=== PATIENT | male | born 1965 | race Caucasian/White ===

== ENCOUNTER 2017-08-17 13:20 | Emergency (ER) | payer MEDICAID ==
[2017-08-17 13:26] VITALS: TEMP 98.2
--- NOTE | 2017-08-17 15:04 | EDPHY ---
HPI/HX/ROS/PE/MDM Narrative: CHIEF COMPLAINT: Rib vasquez HPI: This patient is a non-anticoagulated 51 y/o male arriving with his complaining of left-sided rib and back pain secondary to a mechanical fall two days prior to arrival. He was walking down the stairs in flip-flops and tripped , causing him to fall and strike his ribs on the left side. His pain is primarily localized to his upper ribs posteriorly. He presents as this pain has persisted and he is concerned regarding possible fracture. He denies any other injuries. He denies abdominal pain, hematuria, chest pain, shortness of breath, fainting, or weakness. REVIEW OF SYSTEMS: Aside from elements discussed in the HPI, a comprehensive 10-point review of systems was reviewed and is negative. PMH: 1. Hypertension (Lisinopril) SOCIAL HISTORY: Lives in [place]. Employed. Friend at bedside. PHYSICAL EXAM: General:Patient is alert, in no acute distress. ENT:Eyes are normal to inspection. ENT inspection normal. Neck: Normal inspection. Full range of motion. Respiratory:No respiratory distress. Breath sounds normal bilaterally. Cardiovascular: Regular rate and rhythm. Strong peripheral pulses. Normal cap refill. Abdomen:The abdomen is nontender to palpation. There are no peritoneal signs. There are normal bowel sounds. Back: Tenderness to left midaxillary line. Normal to inspection. Skin: Normal color. No rash. Warm and dry. Extremities: Normal appearance. Full range of motion. Neuro: Oriented x3. Normal motor function. Normal sensory function. ED Course: 51 y/o male presents with left rib pain secondary to a fall two days prior to arrival. Exam reveals tenderness along the left midaxillary line. No splenic pain or tenderness. Plan for chest x-ray to rule out acute osseous abnormalities. 15:50 Reviewed chest x-ray. There is evidence of two upper rib fractures on the left side. Pending radiologist review. Radiologist report identifies 2 left anterior rib fractures. I discussed these results with patient. Plan to discharge home in good condition with [place] for pain relief and incentive spirometer. Follow up and return precautions discussed , including abdominal pain or hematuria. The patient is comfortable with this plan. MDM: This patient presents with flank pain after fall/blunt injury. XR reveals two rib fxs in area of pain - no PTX. The patient has no abdominal TTP to suggest splenic or renal injury and his exam is reassuring. He declined additional imaging. We discussed strict return precautions. - Data Points Imaging Results: Imaging Impressions Ribs w/Chest X-Ray 08/17/17 15:04 Impression: 2 indeterminate age left anterior rib fractures. No posterior left 10th rib fracture identified. Imaging: I viewed and interpreted images myself General Time Seen by Provider: 08/17/17 14:58 Initial Vital Signs: Initial Vital Signs Temperature (C) 36.8 C 08/17/17 13:21 Heart Rate 107 H 08/17/17 13:21 Respiratory Rate 16 08/17/17 13:21 Blood Pressure 158/112 H 08/17/17 13:21 O2 Sat (%) 98 08/17/17 13:21 O2 Delivery Mode Room Air Allergies/Adverse Reactions: No Known Allergies Allergy (Unverified 01/10/14 02:02) Home Medications: Medication Instructions Recorded Herbals/Supplements -Info Only 1 ea PO DAILY 02/23/16 Lisinopril [Zestril 10 mg (*)] 10 mg PO DAILY 02/23/16 Multivitamins [Multivitamin (*)] 1 each PO DAILY 02/23/16 Acetaminophen [Tylenol 325mg (*)] 650 mg PO Q4 PRN #0 tab 02/25/16 Folic Acid [Folic Acid 1 MG (*)] 1 mg PO DAILY #30 tab 02/25/16 Thiamine HCl [Vitamin B-1] 100 mg PO DAILY #30 tab 02/25/16 Hydrocodone/APAP 5/325 [[place] 1 - 2 tab PO Q6H PRN #10 tab 08/17/17 5/325 (*)] Departure - Departure Disposition: Home, Routine, Self-Care Clinical Impression: Multiple rib fractures Condition: Good Instructions: How to Use an Incentive Spirometer (ED), Rib Fracture (ED) Additional Instructions: 1. Follow up with your primary doctor in 2-3 days for reevaluation. 2. Use incentive spirometer as directed several times daily. 3. Return to the emergency department for fever, worsening pain, shortness of breath or difficulty breathing, abdominal pain, blood in urine or other concerns. 4. Take Ibuprofen or Tylenol as directed below as needed for pain relief. Use [place] as prescribed as needed for breakthrough pain uncontrolled by ibuprofen. Do not take Tylenol (acetaminophen) with [place] as this medication already contains acetaminophen Adult Pain & Fever Control: We recommend Acetaminophen (Tylenol) and Ibuprofen (Motrin,Advil) for pain and fever control. When fever is high or pain severe, both drugs can be used at the same time, but at different intervals. Please note the time differences. Your dose is: Acetaminophen 650mg every 4 to 6 hours Ibuprofen 600mg every 6-8 hours with food Note: do not take Acetaminophen with Hydrocodone (Vicodin, Lortab) or Oxycodone (Percocet). These medications also contain Acetaminophen. No more than 3000mg of Acetaminophen should be taken in 24 hours (for an adult). Referrals: Sammi Uriostegui MD [Primary Care Provider] - As per Instructions Stand Alone Forms: Work Limited Duty Prescriptions: Hydrocodone/APAP 5/325 [[place] 5/325 (*)] 1 - 2 tab PO Q6H PRN #10 tab PRN Reason: Pain, Severe Report Scribed for: Vaus Vazquez Report Scribed by: Rosalind Vaughan Date of Report: 08/17/17 Time of Report: 16:02 Physician Review and Approval Statement: Portions of this note were transcribed by an ED scribe. I personally performed the history, physical exam, and medical decision making; and confirm the accuracy of the information in the transcribed note.
[2017-08-17 16:22] VITALS: BP 165/100; PULSE 110; RESP 18; O2SAT 96
== END 2017-08-17 16:22 | disposition home or self-care (01) ==
DX: S22.42XA Multiple fractures of ribs, left side, initial encounter for closed fracture (principal); W18.39XA Other fall on same level, initial encounter; Y99.8 Other external cause status; Y93.89 Activity, other specified

== ENCOUNTER 2017-11-02 00:55 | Emergency (ER) | payer MEDICAID ==
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
[2017-11-02 01:15] VITALS: RESP 16; TEMP 97.9
[2017-11-02 06:21] VITALS: BP 108/82; PULSE 92; O2SAT 92
== END 2017-11-02 06:20 | disposition home or self-care (01) ==
LOC: EDUNIT#
DX: F10.129 Alcohol abuse with intoxication, unspecified (principal); I10 Essential (primary) hypertension

== ENCOUNTER 2018-01-07 14:18 | Emergency (ER) | payer OTHER, MEDICAID ==
[2018-01-07 14:26] VITALS: BP 149/100
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
[2018-01-07] MEDS ORDERED: OXYCODONE/APAP 5/325 TAB PO ONE (14:52)
== END 2018-01-07 16:16 | disposition home or self-care (01) ==
DX: S92.425A Nondisplaced fracture of distal phalanx of left great toe, initial encounter for closed fracture (principal); S92.902A Unspecified fracture of left foot, initial encounter for closed fracture; I10 Essential (primary) hypertension; J45.909 Unspecified asthma, uncomplicated; Z87.891 Personal history of nicotine dependence; X50.9XXA Other and unspecified overexertion or strenuous movements or postures, initial encounter
CPT/HCPCS: L4386

== ENCOUNTER 2018-01-28 16:05 | Emergency (ER) | payer MEDICAID, OTHER ==
--- NOTE | 2018-01-28 16:19 | EDPHY ---
General Time Seen by Provider: 01/28/18 16:10 Narrative: CHIEF COMPLAINT: "alcohol intoxication", [employer] custody HISTORY OF PRESENT ILLNESS: Patient presents in custody of [place] [employer] by EMS. He reportedly is here for acute alcohol intoxication. EMS and [place] [employer] report that he was found on the side of the road, and someone was concerned for his well being. He denies any complaints of any kind. He states "I've been drinking." He denies fall, injury or pain of any kind. He says that he does not want to be here and wants to be discharged. There is a strong odor of alcohol about him. He denies any complaints, thus there are no modifying factors. REVIEW OF SYSTEMS: Ten systems reviewed and are negative unless otherwise noted in the HPI PCP: [facility] SPECIALISTS: None PAST MEDICAL HISTORY: Denies any diagnoses, chart review reveals antihypertensive use PAST SURGICAL HISTORY: Denies any surgeries SOCIAL HISTORY: Admits to occasional tobacco use and daily alcohol ingestion, sometimes "twice daily" FAMILY HISTORY: Noncontributory EXAMINATION General Appearance: Alert, no distress Head: normocephalic, atraumatic. No Bray sign. No raccoon eyes. There are well-healed incisions/lacerations on the posterior scalp Eyes: Pupils equal and round, no conjunctival pallor or injection ENT, Mouth: Mucous membranes moist. Poor dentition Neck: Normal inspection, supple, non-tender Respiratory: Lungs are clear to auscultation Cardiovascular: Regular rate and rhythm. No murmur Gastrointestinal: Abdomen is soft and nontender Back: non-tender, no bony abnormalities Neurological: A&O, nonfocal, no ataxia. Strength is symmetric in the limbs. Skin: Warm and dry, no rash. Healed surgical incisions on lacerations. Extremities: Nontender, no pedal edema Psychiatric: Mood and affect normal DIFFERENTIAL DIAGNOSES: Including but not limited to acute alcohol intoxication, chronic alcohol dependency, alcohol MDM: 4:12 p.m. Acute alcohol intoxication no complaints for the patient arrives by [place] [employer] in EMS. He is ambulatory with minimal assistance at this time. He does not appear to be any acute distress as a very strong odor of alcohol about him. 4:25 p.m. Patient has ambulated in the emergency department to my satisfaction. I do feel that he is acutely intoxicated, but the patient did admits to heavy alcohol ingestion he is clinically sober for medical clearance at this time. There is no signs of trauma and he denies any complaints of any kind other than wanting to drink more alcohol. At this time I do feel he is stable for discharge to the custody of [place] [employer]. He is discharged in stable condition SUPERVISION: This patient was independently evaluated without direct involvement of or examination by the attending physician. - History Smoking Status: Former smoker - Objective Vital Signs: Initial Vital Signs Temperature (C) 98.4 F 01/28/18 16:05 Heart Rate 98 01/28/18 16:05 Respiratory Rate 16 01/28/18 16:05 Blood Pressure 116/72 01/28/18 16:05 O2 Sat (%) 91 L 01/28/18 16:05 O2 Delivery Mode Room Air Allergies/Adverse Reactions: No Known Allergies Allergy (Unverified 01/07/18 14:23) Home Medications: Medication Instructions Recorded Lisinopril [Zestril 10 mg (*)] 10 mg PO DAILY 02/23/16 Departure - Departure Disposition: Law Enforcement/Court/[facility] Clinical Impression: Medical clearance for incarceration Acute alcohol intoxication Qualifiers: Complication of substance-induced condition: uncomplicated Qualified Code(s): F10.929 - Alcohol use, unspecified with intoxication, unspecified Condition: Good Instructions: Abuse of Alcohol (ED), Alcohol Dependence (ED) Referrals: [facility],. [Clinic] - As per Instructions
[2018-01-28 16:24] VITALS: BP 116/72
== END 2018-01-28 16:29 ==
LOC: EDUNIT#
DX: F10.929 Alcohol use, unspecified with intoxication, unspecified (principal); Z87.891 Personal history of nicotine dependence

== ENCOUNTER 2018-05-07 10:43 | Emergency (ER) | payer MEDICAID ==
[2018-05-07] MEDS ORDERED: ONDANSETRON DISINTEGRATING 4 MG TAB PO ONE (10:52)
--- NOTE | 2018-05-07 10:57 | EDPHY ---
H & P Time Seen by Provider: 05/07/18 10:52 HPI/ROS: HPI: This is a 68-year-old male who presents with Chief Complaint: Alcohol intoxication Location: Body Quality: Alcohol intoxication Duration: unknown Signs and Symptoms: No homicidal ideation, no suicidal ideation, no hallucinations Timing: Acute on chronic Severity: [id number] Context: Patient was brought in by EMS, after bystanders at [facility] for intoxicated male that wandered into the store. Male admits to drinking alcohol today but denies any other drug use. Patient is refusing to answer questions during my interview in the emergency room. He is lying on his left side sleeping soundly. EMS reports that they [facility] but patient refused to give his name so they were "unable to check him in" so they brought him to the emergency room. Patient refuses to give me his name. Very difficult historian and very uncooperative. Modifying Factors: None Comment: ROS: Difficult due to intoxication MEDICAL/SURGICAL/SOCIAL HISTORY: Medical history: Alcoholism, hypertension, hyperlipidemia Surgical history: Unknown Social history: Unknown CONSTITUTIONAL: Patient smells of feces, intoxicated adult white male, smells of alcohol, sleepy, no obvious distress HEENT: Atraumatic and normocephalic, PERRL, EOMI. Nares patent; no rhinorrhea; no nasal mucosal edema. Tympanic membranes clear. Oropharynx clear, poor dentition no exudate and moist pink mucosa. Airway patent. No lymphadenopathy. No meningismus. Cardiovascular: Normal S1/S2, mild tachycardia, regular rhythm, without murmur rub or gallop. PULMONARY/CHEST: Symmetrical and nontender. Clear to auscultation bilaterally. Good air movement. No accessory muscle usage. ABDOMEN: Soft, nondistended, nontender, no rebound, no guarding, no peritoneal signs, no masses or organomegaly. No CVAT. EXTREMITIES: 2/2 pulses, strength 5/5, no deformities, no clubbing, no cyanosis or edema. NEUROLOGICAL: no focal neuro deficits. GCS 15. SKIN: Warm and dry, no erythema. no rash. Good capillary refill. PSYCH: Poor eye contact, poor historian and refusal to answer questions, poor insight and judgment, no auditory hallucinations, no visual hallucinations, no suicidal ideation with a plan, no homicidal ideation, no paranoia Source: EMS Exam Limitations: Intoxication Constitutional: Initial Vital Signs Temperature (C) 36.7 C 05/07/18 10:57 Heart Rate 89 05/07/18 10:57 Respiratory Rate 16 05/07/18 10:57 Blood Pressure 87/51 L 05/07/18 10:57 O2 Sat (%) 95 05/07/18 10:57 O2 Delivery Mode Room Air Allergies/Adverse Reactions: No Known Allergies Allergy (Unverified 05/07/18 11:17) Home Medications: Medication Instructions Recorded Lisinopril [Zestril 10 mg (*)] 10 mg PO DAILY 02/23/16 Lipitor 03/28/18 Medical Decision Making ED Course/Re-evaluation: Does not meet M1 hold criteria. Placed on detain her until patient becomes more sober and will re-evaluate. Suspect patient will be a candidate to be discharged to the [facility]. Breathalyzer and Zofran 4 mg ODT ordered. No signs of delirium/coma/seizure activity. ETOH 253 at 1100 1400: Reassessed patient who is walking back and forth to the bathroom without ataxia. Discharged via taxi to the [facility] with Librium prepack. This patient was seen under the supervision of my secondary supervising physician. I evaluated care for this patient independently. Discussed this patient with Dr. Beatty. Differential Diagnosis: Differential diagnosis includes but is not limited to alcohol intoxication, drug use, psychosis, delirium. - Data Points Medications Given: Discontinued Medications Chlordiazepoxide (Librium 25 Mg Prepack#6) 1 btl TAKEHOME EDNOW ONE Stop: 05/07/18 13:56 Last Admin: 05/07/18 14:12 Dose: 1 btl Ondansetron HCl (Zofran Odt) 4 mg PO EDNOW ONE Stop: 05/07/18 10:53 Last Admin: 05/07/18 11:15 Dose: Not Given Departure - Departure Disposition: Home, Routine, Self-Care Clinical Impression: Alcohol intoxication Qualifiers: Complication of substance-induced condition: uncomplicated Qualified Code(s): F10.920 - Alcohol use, unspecified with intoxication, uncomplicated Condition: Good Instructions: Abuse of Alcohol (ED) Additional Instructions: Patient is Medically Cleared to be discharged to the [facility]. See [facility] for follow-up instructions and prescriptions. Referrals: [facility] [Outside] - As per Instructions
[2018-05-07 10:59] VITALS: BP 87/51
[2018-05-07] MEDS ORDERED: CHLORDIAZEPOXIDE 25MG PREPK#6 BTL TAKEHOME ONE (13:55)
== END 2018-05-07 14:30 | disposition home or self-care (01) ==
LOC: EDUNIT#
DX: F10.920 Alcohol use, unspecified with intoxication, uncomplicated (principal)

== ENCOUNTER 2018-05-07 17:03 | Emergency (ER) | payer MEDICAID ==
--- NOTE | 2018-05-07 17:11 | EDPHY ---
H & P Time Seen by Provider: 05/07/18 17:05 HPI/ROS: CHIEF COMPLAINT: Suspected alcohol abuse,"leave me the fuck alone" HISTORY OF PRESENT ILLNESS: 52 year old male arrives via ambulance for suspected alcohol abuse. He was found sleeping on a sidewalk. Patient unable to ambulate without assistance. No reports of trauma or assault. No fall from height. No structures of height near patient. [facility]. He does not want to go to the [facility]. Denies pain or discomfort. Denies bleeding. REVIEW OF SYSTEMS: 10 systems reviewed and negative with the exception of the elements mentioned in the history of present illness PAST MEDICAL/SURGICAL HISTORY: no anticoagulant use, no relevant medical/ surgical history SOCIAL HISTORY: Positive for witnessed and self disclosed alcohol use PHYSICAL EXAM 1) GENERAL: Well-developed, well-nourished, alert and oriented. Appears to be in no acute distress. Answering questions appropriately.Smells of alcohol. 2) HEAD: Normocephalic, atraumatic 3) HEENT: Pupils equal, round, reactive to light bilaterally. Negative Horners. Nasopharynx, oropharynx, clear. No deformity or angulation of nose. No septal hematoma. No rhinorrhea. No oral trauma. Ears bilaterally with normal tympanic membranes. No hemotympanum. No fluid or blood in the external auditory canal. No raccoon eyes. No Bray sign. Teeth are normally aligned with no gross malocclusion, TMJ bilaterally nontender, facial bones nontender including the zygomatic arch, maxilla mandible. 4) NECK: Posterior cervical spine is nontender, no stepoff, no effusion. Full range of motion which does not elicit any midline cervical spine pain, no posterior midline tenderness, no step-off. 5) LUNGS: Clear to auscultation bilaterally, no wheezes, no rhonchi, no retractions. No obvious signs of trauma. No chest wall pain. No flaring, no grunting. Moving symmetrically. No crepitus. 6) HEART: [Regular rate and rhythm, 7) ABDOMEN: No guarding, no rebound, no focal tenderness, no peritoneal signs, no signs of trauma, no ecchymosis 8) MUSCULOSKELETAL: Moving all extremities, no focal areas of tenderness, no obvious trauma. 9) BACK: No midline vertebral tenderness, no fluctuance, no step-off, no obvious trauma, no visual or palpable abnormality. 10) SKIN: No laceration. No abrasion DIFFERENTIAL DIAGNOSIS: In no particular orderincluding but not limited to hypoglycemia, infectious process, electrolyte abnormality, head injury and intoxicants. Smoking Status: Former smoker Constitutional: Initial Vital Signs Temperature (C) 36.6 C 05/07/18 17:53 Heart Rate 93 05/07/18 17:53 Respiratory Rate 16 05/07/18 17:53 Blood Pressure 99/61 L 05/07/18 17:53 O2 Sat (%) 91 L 05/07/18 17:53 O2 Delivery Mode Room Air Allergies/Adverse Reactions: No Known Allergies Allergy (Unverified 05/07/18 11:17) Home Medications: Medication Instructions Recorded Lisinopril [Zestril 10 mg (*)] 10 mg PO DAILY 02/23/16 Lipitor 03/28/18 MDM/Departure - [facility] ED Course/Re-evaluation: Patient is not on an [facility] hold. He is not accompanied by police I have offered to send him to the [facility]. He does not want to go to the [facility]. He was seen earlier today and sent to the [facility]. He denies suicidal or homicidal ideation. He will will observed in the ER for a period of time and allowed to sober 7:00 p.m.: Patient is sitting upright ambulating without assistance stable steady gait clear speech pattern, alert oriented person place time events. Doubt delirium tremens. Have offered to send him to the [facility] which he declines. He will be discharged home. - Depart Disposition: Home, Routine, Self-Care Clinical Impression: Alcohol use Condition: Good Instructions: Abuse of Alcohol (ED) Referrals: Sammi Uriostegui MD [Primary Care Provider] - 1-2 days without fail
[2018-05-07 17:55] VITALS: BP 99/61
== END 2018-05-07 18:45 | disposition home or self-care (01) ==
LOC: EDUNIT#
DX: F10.10 Alcohol abuse, uncomplicated (principal)

== ENCOUNTER 2018-05-08 12:45 | Emergency (ER) | payer MEDICAID, OTHER ==
--- NOTE | 2018-05-08 13:02 | EDPHY ---
H & P Stated Complaint: ETOH - Personal History Current Tetanus/Diphtheria Vaccine: Unsure Current Tetanus Diphtheria and Acellular Pertussis (TDAP): Unsure - Medical/Surgical History Hx Asthma: Yes Hx Chronic Respiratory Disease: No Hx Diabetes: No Hx Cardiac Disease: Yes Hx Renal Disease: No Hx Cirrhosis: No Hx Alcoholism: Yes Hx HIV/AIDS: No Hx Splenectomy or Spleen Trauma: No Other PMH: Alcohol abuse. HTN - Social History Smoking Status: Former smoker Time Seen by Provider: 05/08/18 12:51 HPI/ROS: CHIEF COMPLAINT: Suspected alcohol abuse HISTORY OF PRESENT ILLNESS: 52 year old male, homeless, arrives via ambulance for suspected alcohol abuse. Patient unable to ambulate without assistance. No reports of trauma or assault. No fall from height. No structures of height near patient. REVIEW OF SYSTEMS: 10 systems reviewed and negative with the exception of the elements mentioned in the history of present illness PAST MEDICAL/SURGICAL HISTORY: no anticoagulant use, no relevant medical/ surgical history SOCIAL HISTORY: Positive for witnessed and self disclosed alcohol use, vodka PHYSICAL EXAM 1) GENERAL: Well-developed, well-nourished, alert and oriented. Appears to be in no acute distress. Answering questions appropriately.Smells of alcohol. 2) HEAD: Normocephalic, atraumatic 3) HEENT: Pupils equal, round, reactive to light bilaterally. Negative Horners. Nasopharynx, oropharynx, clear. No deformity or angulation of nose. No septal hematoma. No rhinorrhea. No oral trauma. Ears bilaterally with normal tympanic membranes. No hemotympanum. No fluid or blood in the external auditory canal. No raccoon eyes. No Bray sign. Teeth are normally aligned with no gross malocclusion, TMJ bilaterally nontender, facial bones nontender including the zygomatic arch, maxilla mandible. 4) NECK: No cervical collar is on. Posterior cervical spine is nontender, no stepoff, no effusion. Full range of motion which does not elicit any midline cervical spine pain, no posterior midline tenderness, no step-off. 5) LUNGS: Clear to auscultation bilaterally, no wheezes, no rhonchi, no retractions. No obvious signs of trauma. No chest wall pain. No flaring, no grunting. Moving symmetrically. No crepitus. 6) HEART: [Regular rate and rhythm, 7) ABDOMEN: No guarding, no rebound, no focal tenderness, no peritoneal signs, no signs of trauma, no ecchymosis 8) MUSCULOSKELETAL: Moving all extremities, no focal areas of tenderness, no obvious trauma. 9) BACK: No midline vertebral tenderness, no fluctuance, no step-off, no obvious trauma, no visual or palpable abnormality. 10) SKIN: No laceration. No abrasion DIFFERENTIAL DIAGNOSIS: In no particular orderincluding but not limited to hypoglycemia, infectious process, electrolyte abnormality, head injury and intoxicants. (Dayne Whelan) Constitutional: Initial Vital Signs Temperature (C) 36.8 C 05/08/18 12:53 Heart Rate 101 H 05/08/18 12:53 Respiratory Rate 16 05/08/18 12:53 Blood Pressure 121/80 H 05/08/18 12:53 O2 Sat (%) 97 05/08/18 12:53 O2 Delivery Mode Room Air Allergies/Adverse Reactions: No Known Allergies Allergy (Unverified 05/07/18 11:17) Home Medications: Medication Instructions Recorded Lisinopril [Zestril 10 mg (*)] 10 mg PO DAILY 02/23/16 Lipitor 03/28/18 Medical Decision Making ED Course/Re-evaluation: Patient is not on [facility]. Have offered to send him to the [facility] which he declines. 4:30 p.m.: Care of patient to Dr. Scherer, patient sleeping, sobering. He has been re-evaluated with serial exams. He has repeatedly stated that he does not want to go to the [facility] (Dayne Whelan) Other Provider: PHYSICIAN DOCUMENTATION: The patient was evaluated and managed by the Physician Health And Safety Coordinator and myself. I have reviewed the chart and agree with the findings and plan of care as documented. In addition, I examined the patient myself at 1730. History confirmed as alcohol use today. Physical findings as follows: At this point the patient is sleepy but he is able to respond to voice and answer questions. Ambulatory, no medical complaints, stable for detox. I am the secondary supervising physician. (Tereso Scherer) Departure - Departure Disposition: Home, Routine, Self-Care Clinical Impression: Alcohol intoxication Qualifiers: Complication of substance-induced condition: uncomplicated Qualified Code(s): F10.920 - Alcohol use, unspecified with intoxication, uncomplicated Condition: Good Instructions: Abuse of Alcohol (ED) Referrals: [facility] [Outside] - As per Instructions
[2018-05-08 17:57] VITALS: BP 119/78
== END 2018-05-08 17:56 | disposition home or self-care (01) ==
LOC: EDUNIT#
DX: F10.920 Alcohol use, unspecified with intoxication, uncomplicated (principal); Z59.0 Homelessness; Z87.891 Personal history of nicotine dependence

== ENCOUNTER 2018-05-23 13:34 | Emergency (ER) | payer MEDICAID, OTHER ==
--- NOTE | 2018-05-23 13:44 | EDPHY ---
H & P Time Seen by Provider: 05/23/18 13:43 HPI/ROS: CHIEF COMPLAINT: "I am going to bite your fucking hand off" HISTORY OF PRESENT ILLNESS: Patient was found unresponsive by a bystander, several bottles of vodka nearby, glucose of 62 pre-hospital. Initially unresponsive and then was combative on the way in. He refuses to give any other history. No physical evidence of trauma, reported by EMS on scene. Further history and review of systems unobtainable on arrival because of the patient's lack of cooperation. PAST MEDICAL HISTORY: Previous ED visit 05/08/2018 reviewed includes hypertension and alcohol. Social history: Recent alcohol, his residence is 2 blocks away from where he was found. General Appearance: Alert, verbally combative, trying to get out of restraints , not cooperative. Eyes: Pupils equal and extraocular motion normal. ENT, Mouth: Normal mucous membranes. Respiratory: Normal respiratory effort, breath sounds equal, lungs are clear to auscultation. Cardiovascular: Regular rate and rhythm. Gastrointestinal: Abdomen is soft and non tender. Neurological: Alert, moving all 4 extremities, verbally combative. Skin: Warm and dry, no rashes. No external evidence of bruising or laceration. Musculoskeletal: No extremity deformity or tenderness. Psychiatric: Mildly agitated, unable to perform because of lack of cooperation. Emergency Department course/MDM: Consistent with alcohol overdose, plan for serial exam and monitoring. 1938: Awake ambulatory not ataxic no longer clinically intoxicated stable for discharge to detox. No medical complaints at this time. Smoking Status: Former smoker Constitutional: Initial Vital Signs Temperature (C) 37 C 05/23/18 13:44 Heart Rate 110 H 05/23/18 13:44 Blood Pressure 130/85 H 05/23/18 13:44 O2 Sat (%) 94 05/23/18 13:44 O2 Delivery Mode Room Air Allergies/Adverse Reactions: No Known Allergies Allergy (Unverified 05/07/18 11:17) Home Medications: Medication Instructions Recorded Lisinopril [Zestril 10 mg (*)] 10 mg PO DAILY 02/23/16 Lipitor 03/28/18 Departure - Departure Disposition: Home, Routine, Self-Care Clinical Impression: Alcoholic intoxication Qualifiers: Complication of substance-induced condition: uncomplicated Qualified Code(s): F10.920 - Alcohol use, unspecified with intoxication, uncomplicated Condition: Good Instructions: Alcohol Intoxication (ED) Referrals: Sammi Uriostegui MD [Medical Doctor] - As per Instructions
[2018-05-23] MEDS ORDERED: CHLORDIAZEPOXIDE 25MG PREPK#6 BTL TAKEHOME ONE ×2 (19:38→19:39)
[2018-05-23 19:47] VITALS: BP 134/73
== END 2018-05-23 19:47 | disposition home or self-care (01) ==
LOC: EDUNIT#
DX: F10.920 Alcohol use, unspecified with intoxication, uncomplicated (principal)

== ENCOUNTER 2018-06-08 13:02 | Emergency (ER) | payer MEDICAID, OTHER ==
--- NOTE | 2018-06-08 13:31 | EDPHY ---
H & P Stated Complaint: "Celebrating release from Detox" Time Seen by Provider: 06/08/18 13:23 HPI/ROS: CHIEF COMPLAINT: Intoxication HISTORY OF PRESENT ILLNESS: The patient is a 52-year-old man with history of alcoholism who was discharged from the alcohol recovery Center this morning and was found intoxicated sitting on the street corner with his who was also intoxicated. She was taken to the alcohol recovery Center again and he was brought here because he is unable to ambulate. No signs of trauma. No complaints of pain. No recent fevers or illness. Glucose was normal for EMS. Severity: Moderate Modifying factors: None REVIEW OF SYSTEMS: Unable to obtain secondary to intoxication Physical Exam General Appearance: WD/WN, no apparent distress, obtunded (But arousable with painful stimulation) EENT: PERRL/EOMI, normal ENT inspection, TMs normal, pharynx normal Neck: non-tender, full range of motion, supple, normal inspection Respiratory: chest non-tender, lungs clear, normal breath sounds Cardiac/Chest: normal peripheral pulses, regular rate, rhythm, P Peripheral Pulses: 2+: carotid (R), carotid (L), femoral (R), femoral (L), dorsalis-pedis (R), dorsalis-pedis (L) Abdomen: normal bowel sounds, non-tender, soft Extremities: normal range of motion, non-tender, normal inspection, normal capillary refill Neurological: calm, spiral winder II-XII NML as tested. No: alert (Somnolent) Appearance: appropriate appearance, appropriate insight, neat, denies illness Behavior/Eye Contact/Speech: cooperative, decreased rate of speech Thoughts/Hallucinations: normal thought pattern, no apparent hallucination Skin: normal color, warm/dry Source: EMS Exam Limitations: Intoxication - Personal History Current Tetanus/Diphtheria Vaccine: Unsure Current Tetanus Diphtheria and Acellular Pertussis (TDAP): Unsure - Medical/Surgical History Hx Asthma: Yes Hx Chronic Respiratory Disease: No Hx Diabetes: No Hx Cardiac Disease: Yes Hx Renal Disease: No Hx Cirrhosis: No Hx Alcoholism: Yes Hx HIV/AIDS: No Hx Splenectomy or Spleen Trauma: No Other PMH: Alcohol abuse. HTN - Social History Smoking Status: Former smoker Alcohol Use: Heavy Constitutional: Initial Vital Signs Temperature (C) 36.8 C 06/08/18 13:08 Heart Rate 103 H 06/08/18 13:08 Respiratory Rate 18 06/08/18 13:08 Blood Pressure 119/70 06/08/18 13:08 O2 Sat (%) 91 L 06/08/18 13:08 O2 Delivery Mode Room Air O2 (L/minute) 2 Allergies/Adverse Reactions: No Known Allergies Allergy (Unverified 05/07/18 11:17) Home Medications: Medication Instructions Recorded Lisinopril [Zestril 10 mg (*)] 10 mg PO DAILY 02/23/16 Lipitor 03/28/18 Medical Decision Making ED Course/Re-evaluation: 6:35 p.m. the patient is able to ambulate. We will transfer him to the alcohol recovery Center. He continues to deny any pain or illness. Differential Diagnosis: Partial list of the Differential diagnosis considered include but were not limited to; intoxication, polysubstance abuse and although unlikely based on the history and physical exam, I also considered head injury, neck injury. - Data Points Medications Given: Discontinued Medications Chlordiazepoxide (Librium 25 Mg Prepack#6) 1 btl [place] [facility] ONE Stop: 06/08/18 18:39 Last Admin: 06/08/18 18:46 Dose: 1 btl Departure - Departure Disposition: Home, Routine, Self-Care Clinical Impression: Alcoholic intoxication Qualifiers: Complication of substance-induced condition: uncomplicated Qualified Code(s): F10.920 - Alcohol use, unspecified with intoxication, uncomplicated Condition: Fair Instructions: Chlordiazepoxide (By mouth), Alcohol Intoxication (ED) Referrals: NONE *PRIMARY CARE P,. [Primary Care Provider] - As per Instructions Delma Sanford MD [Medical Doctor] - As per Instructions
[2018-06-08] MEDS ORDERED: CHLORDIAZEPOXIDE 25MG PREPK#6 BTL TAKEHOME ONE (18:38)
[2018-06-08 18:43] VITALS: BP 118/78
== END 2018-06-08 19:19 | disposition home or self-care (01) ==
LOC: EDUNIT#
DX: F10.129 Alcohol abuse with intoxication, unspecified (principal)

== ENCOUNTER 2018-06-13 17:17 | Emergency (ER) | payer MEDICAID ==
--- NOTE | 2018-06-13 17:22 | EDPHY ---
H & P Time Seen by Provider: 06/13/18 17:17 HPI/ROS: CHIEF COMPLAINT: Intoxication HISTORY OF PRESENT ILLNESS: Patient is a 52-year-old man who was found passed out in his front yd next to his leaf blower. He told paramedics that he drink a pt of whiskey. He smells like alcohol. He is unable to ambulate on his own. No sign of trauma. No complaints of pain. He has been here multiple times for the same. Severity: Moderate Modifying factors: None REVIEW OF SYSTEMS: Unable to obtain secondary to intoxication Physical Exam General Appearance: WD/WN, no apparent distress, obtunded (But arousable with painful stimulation) EENT: PERRL/EOMI, normal ENT inspection, TMs normal, pharynx normal Neck: non-tender, full range of motion, supple, normal inspection Respiratory: chest non-tender, lungs clear, normal breath sounds Cardiac/Chest: normal peripheral pulses, regular rate, rhythm, P Peripheral Pulses: 2+: carotid (R), carotid (L), femoral (R), femoral (L), dorsalis-pedis (R), dorsalis-pedis (L) Abdomen: normal bowel sounds, non-tender, soft Extremities: normal range of motion, non-tender, normal inspection, normal capillary refill Neurological: calm, teletype adjuster II-XII NML as tested. No: alert (Somnolent) Appearance: appropriate appearance, appropriate insight, neat, denies illness Behavior/Eye Contact/Speech: cooperative, decreased rate of speech Thoughts/Hallucinations: normal thought pattern, no apparent hallucination Skin: normal color, warm/dry Source: EMS, Old records - Medical/Surgical History Hx Asthma: Yes Hx Chronic Respiratory Disease: No Hx Diabetes: No Hx Cardiac Disease: Yes Hx Renal Disease: No Hx Cirrhosis: No Hx Alcoholism: Yes Hx HIV/AIDS: No Hx Splenectomy or Spleen Trauma: No Other PMH: Alcohol abuse. HTN - Family History Significant Family History: No pertinent family hx - Social History Smoking Status: Former smoker Alcohol Use: Heavy Constitutional: Initial Vital Signs Temperature (C) 36.5 C 06/13/18 17:24 Heart Rate 94 06/13/18 17:24 Respiratory Rate 18 06/13/18 17:24 Blood Pressure 106/70 06/13/18 17:24 O2 Sat (%) 94 06/13/18 17:24 O2 Delivery Mode Room Air Allergies/Adverse Reactions: No Known Allergies Allergy (Unverified 05/07/18 11:17) Home Medications: Medication Instructions Recorded Lisinopril [Zestril 10 mg (*)] 10 mg PO DAILY 02/23/16 Lipitor 03/28/18 Medical Decision Making ED Course/Re-evaluation: 7:00 p.m. the patient is ambulatory. The he denies any injury or medical complaint. Police have been called to take him to the [facility]. Differential Diagnosis: Partial list of the Differential diagnosis considered include but were not limited to; alcohol intoxication, polysubstance abuse and although unlikely based on the history and physical exam, I also considered head injury, infection. - Data Points Medications Given: Discontinued Medications Chlordiazepoxide (Librium 25 Mg Prepack#6) 1 btl [facility] EDNOW ONE Stop: 06/13/18 19:22 Last Admin: 06/13/18 19:27 Dose: 1 btl Departure - Departure Disposition: Home, Routine, Self-Care Clinical Impression: Alcoholic intoxication Qualifiers: Complication of substance-induced condition: uncomplicated Qualified Code(s): F10.920 - Alcohol use, unspecified with intoxication, uncomplicated Condition: Fair Instructions: Chlordiazepoxide (By mouth), Alcohol Intoxication (ED) Referrals: NONE *PRIMARY CARE P,. [Primary Care Provider] - As per Instructions [facility],. [Clinic] - As per Instructions
[2018-06-13] MEDS ORDERED: CHLORDIAZEPOXIDE 25MG PREPK#6 BTL TAKEHOME ONE (19:21)
[2018-06-13 19:33] VITALS: BP 122/90
== END 2018-06-13 19:31 | disposition home or self-care (01) ==
LOC: EDUNIT#
DX: F10.129 Alcohol abuse with intoxication, unspecified (principal)

== ENCOUNTER 2018-08-24 11:25 | Emergency (ER) | payer MEDICAID ==
--- NOTE | 2018-08-24 11:44 | EDPHY ---
H & P Stated Complaint: AMS Time Seen by Provider: 08/24/18 11:40 HPI/ROS: CHIEF COMPLAINT: Suspected alcohol abuse HISTORY OF PRESENT ILLNESS: 52 year old male arrives via ambulance for suspected alcohol abuse. He was found sleeping outside of the [place] with am empty bottle of vanilla extract at his side and noted smell of vanilla on his breath. Patient unable to ambulate without assistance. No reports of trauma or assault. No reports of fall from height. No structures of height near patient. There was no reported fall . No seizure activity REVIEW OF SYSTEMS: 10 systems reviewed and negative with the exception of the elements mentioned in the history of present illness PAST MEDICAL/SURGICAL HISTORY: History of alcoholism SOCIAL HISTORY: History of alcoholism. Patient is somnolent when I examine him unable provide me history PHYSICAL EXAM 1) GENERAL: Well-developed, well-nourished, somnolent. Appears to be in no acute distress. Sleeping[Smells of vanilla. 2) HEAD: Normocephalic, atraumatic 3) HEENT: Pupils equal, round, reactive to light bilaterally. Negative Horners. Nasopharynx, oropharynx, clear. No deformity or angulation of nose. No septal hematoma. No rhinorrhea. No oral trauma. Ears bilaterally with normal tympanic membranes. No hemotympanum. No fluid or blood in the external auditory canal. No raccoon eyes. No Bray sign. Teeth are normally aligned with no gross malocclusion, TMJ bilaterally nontender, facial bones nontender including the zygomatic arch, maxilla mandible. 4) NECK: No cervical collar is on. Posterior cervical spine is nontender, no stepoff, no effusion. Full range of motion which does not elicit any midline cervical spine pain, no posterior midline tenderness, no step-off.] 5) LUNGS: Clear to auscultation bilaterally, no wheezes, no rhonchi, no retractions. No obvious signs of trauma. No chest wall pain. No flaring, no grunting. Moving symmetrically. No crepitus. 6) HEART: [Regular rate and rhythm, 7) ABDOMEN: No guarding, no rebound, no focal tenderness, no peritoneal signs, no signs of trauma, no ecchymosis 8) MUSCULOSKELETAL: Moving all extremities, no focal areas of tenderness, no obvious trauma. 9) BACK: No midline vertebral tenderness, no fluctuance, no step-off, no obvious trauma, no visual or palpable abnormality. 10) SKIN: No laceration. No abrasion DIFFERENTIAL DIAGNOSIS: In no particular order including but not limited to hypoglycemia, infectious process, electrolyte abnormality, head injury and intoxicants. - Personal History Current Tetanus/Diphtheria Vaccine: Unsure - Medical/Surgical History Hx Asthma: Yes Hx Chronic Respiratory Disease: No Hx Diabetes: No Hx Cardiac Disease: Yes Hx Renal Disease: No Hx Cirrhosis: No Hx Alcoholism: Yes Hx HIV/AIDS: No Hx Splenectomy or Spleen Trauma: No Other PMH: Alcohol abuse. HTN - Social History Smoking Status: Former smoker Constitutional: Initial Vital Signs Temperature (C) 37.0 C 08/24/18 11:31 Heart Rate 100 08/24/18 11:31 Respiratory Rate 16 08/24/18 11:31 Blood Pressure 104/73 08/24/18 11:31 O2 Sat (%) 93 08/24/18 11:31 O2 Delivery Mode Room Air Allergies/Adverse Reactions: No Known Allergies Allergy (Unverified 05/07/18 11:17) Home Medications: Medication Instructions Recorded Lisinopril [Zestril 10 mg (*)] 10 mg PO DAILY 02/23/16 Lipitor 03/28/18 Medical Decision Making ED Course/Re-evaluation: 4:37 p.m.: Patient has been re-examined with serial exams while in the emergency department. He has been sleeping, has had no complaints of pain or discomfort. At this time the patient is awake, ambulatory, with a stable steady gait, clear speech pattern, oriented to person place time events. Re- examined the patient has no complaints of pain or discomfort. He would like to be discharged. I have offered to send him to the [facility] which he declines. Discharged appearing well. Care of patient under supervision of secondary supervising physician Dr Sendy Kendall. - Data Points Laboratory Results: 08/24/18 11:40 Ethyl Alcohol 383 mg/dL H mg/dL (0-10) Departure - Departure Disposition: Home, Routine, Self-Care Clinical Impression: Alcohol abuse Condition: Good Instructions: Abuse of Alcohol (ED) Referrals: [facility] [Outside] - As per Instructions
[2018-08-24 16:46] VITALS: BP 145/83
== END 2018-08-24 16:49 | disposition home or self-care (01) ==
LOC: EDUNIT#
DX: F10.10 Alcohol abuse, uncomplicated (principal); I10 Essential (primary) hypertension
CPT/HCPCS: G0480

== ENCOUNTER 2018-10-10 16:06 | Emergency (ER) | payer MEDICAID ==
--- NOTE | 2018-10-10 16:40 | EDPHY ---
H & P Stated Complaint: Found down, no trauma noted, admits ETOH, responds to verbal - Personal History Current Tetanus/Diphtheria Vaccine: Unsure - Medical/Surgical History Hx Asthma: Yes Hx Chronic Respiratory Disease: No Hx Diabetes: No Hx Cardiac Disease: Yes Hx Renal Disease: No Hx Cirrhosis: No Hx Alcoholism: Yes Hx HIV/AIDS: No Hx Splenectomy or Spleen Trauma: No Other PMH: Alcohol abuse. HTN - Social History Smoking Status: Former smoker Alcohol Use: Heavy Time Seen by Provider: 10/10/18 16:21 HPI/ROS: CHIEF COMPLAINT: Alcohol intoxication HISTORY OF PRESENT ILLNESS: 52-year-old homeless male with alcoholism presents after being found down. He was found down next to 3 empty vodka bottles and an empty bottle of mouthwash. He admitted to drinking excessive alcohol today. No trauma. He was unable to walk on scene. Transported to the ED by EMS. Blood glucose 120 per EMS. REVIEW OF SYSTEMS: complete 10 point ROS reviewed and is negative except for the noted elements in the HPI (Julia Mon) - Physical Exam Exam: General Appearance: Obtunded, does not answer questions, moans to sternal rub Eyes: Pupils pinpoint ENT, Mouth: Mucous membranes moist, no trauma Neck: normal inspection Respiratory: Lungs are clear to auscultation Cardiovascular: Regular rate and rhythm Gastrointestinal: Abdomen is soft Neurological: Obtunded, moves all extremities Skin: Warm and dry Extremities: normal inspection Psychiatric: Unable to determine (Julia Mon) Constitutional: Initial Vital Signs Temperature (C) 34.8 C L 10/10/18 16:09 Heart Rate 100 10/10/18 16:09 Respiratory Rate 16 10/10/18 16:09 Blood Pressure 106/72 10/10/18 16:09 O2 Sat (%) 94 10/10/18 16:09 O2 Delivery Mode Room Air Allergies/Adverse Reactions: No Known Allergies Allergy (Verified 10/10/18 16:09) Home Medications: Medication Instructions Recorded Lisinopril [Zestril 10 mg (*)] 10 mg PO DAILY 02/23/16 Lipitor 03/28/18 Medical Decision Making ED Course/Re-evaluation: 1914: opens eyes to voice, denies drug use. Will continue to observe. 1999: signed over to Dr. Tee, awaiting sobriety. On [facility] hold. (Julia Mon) 10:38 p.m.- Patient able to walk with a steady gait. Feels well. Will be discharged to the [facility] with Librium. (Lakeisha Tee) Differential Diagnosis: Altered mental status including but not limited to hypoglycemia, infectious process, electrolyte abnormality, head injury, CVA, and intoxicants. (Julia Mon) - Data Points Medications Given: Discontinued Medications Chlordiazepoxide (Librium 25 Mg Prepack#6) 1 btl TAKEHOME EDNOW ONE Stop: 10/10/18 21:55 Last Admin: 10/10/18 22:11 Dose: 1 btl Departure - Departure Disposition: Home, Routine, Self-Care Clinical Impression: Alcoholic intoxication Condition: Fair Instructions: Chlordiazepoxide/Clidinium (By mouth), Alcohol Intoxication (ED) Additional Instructions: [facility] has walk-in appointments for the homeless at the following days/locations. No appointment is needed. Sunday 8-10 am @ [facility] 11 AM-1 PM @ [facility] Sunday 8-10:30 AM @ [facility] Sunday 8-10 AM @ [facility] 2-4 PM @ [facility] Sunday 8-10 AM @ [facility] Referrals: Patient,NotPresent [Unknown] - As per Instructions
[2018-10-10] MEDS ORDERED: CHLORDIAZEPOXIDE 25MG PREPK#6 BTL TAKEHOME ONE (21:54)
[2018-10-10 23:51] VITALS: BP 100/73
== END 2018-10-10 23:49 | disposition home or self-care (01) ==
LOC: EDUNIT#
DX: F10.920 Alcohol use, unspecified with intoxication, uncomplicated (principal); I10 Essential (primary) hypertension; Z59.0 Homelessness; Z87.891 Personal history of nicotine dependence